=== PATIENT | female | born 1960 | race Hispanic/Latino ===

== ENCOUNTER 2019-08-06 06:09 | Day surgery (SDC) | payer BC ==
--- NOTE | 2019-08-06 07:22 | Anesthesia Consultation ---
Anesthesia Consult and Med Hx Date of service: 08/06/19 - Airway Anesthetic Teeth Evaluation: Good ROM Head & Neck: Adequate Mental/Hyoid Distance: Adequate Mallampati Class: Class II Intubation Access Assessment: Probably Good - Pre-Operative Health Status ASA Pre-Surgery Classification: ASA2 Proposed Anesthetic Plan: MAC - Pulmonary Hx Smoking: Yes (40 years current smoker ) - Central Nervous System Hx Psychiatric Problems: Yes (depression/anxiety) - Gastrointestinal Hx Gastroesophageal Reflux Disease: Yes
--- NOTE | 2019-08-06 07:23 | Anesthesia Day of Surgery ---
Anesthesia Day of Surgery - Day of Surgery Patient Examined: Yes Patient H&P Reviewed: Yes Patient is NPO: Yes
[2019-08-06] MEDS ORDERED: NACL 0.9% 1000 ML 1,000 ML IV SCH (08:00)
[2019-08-06] MEDS ORDERED: WATER FOR IRRIG STERILE IR ONE (08:26)
[2019-08-06] MEDS ORDERED: WATER FOR IRRIG STERILE ONE (08:27)
[2019-08-06] MEDS ORDERED: XYLOCAINE 2% INFILTRATI ONE (08:29)
[2019-08-06] MEDS ORDERED: DIPRIVAN 10 MG/ML IV ONE ×3 (08:29→08:53)
--- NOTE | 2019-08-06 08:34 | History and Physical Report ---
HISTORY OF PRESENT ILLNESS: This is a 58-year-old white female who is in otherwise good health, but has a strong family history of cancer including colon cancer. Last colonoscopy was done several years ago. The patient has a prior history of colon polyps and diverticular disease and lately also has been having GERD symptoms and has been advised to have an EGD as well as a colonoscopy done. SOCIAL HISTORY: She admits to smoking on occasion drinks alcohol. ALLERGIES: Has no known allergies. FAMILY HISTORY: Significant for colon cancer. She gives no prior history of any coronary artery disease or CVA. Has had a surgery for a cyst in the back, but no abdominal surgery. PHYSICAL EXAMINATION: VITAL SIGNS: Otherwise are stable. HEENT: Shows no JVD. LUNGS: Clear to auscultation with some reduced breath sounds. CARDIOVASCULAR: Normal. ABDOMEN: Soft. Bowel sounds present. She has some epigastric tenderness. EXTREMITIES: No pedal edema. NEUROLOGIC: She is alert and oriented. ASSESSMENT: Gastroesophageal reflux disease symptoms, possible esophagitis, history of colon polyps, family history of colon cancer and diverticular disease. PLAN: To do an EGD and a colonoscopy at [facility] on 08/06/2019. JOB# [id number] NEHA/JENNIFER
--- NOTE | 2019-08-06 09:12 | Operative Report ---
PROCEDURE: Esophagogastroduodenoscopy with biopsy. INDICATIONS: This is a 58-year-old white female in otherwise good health, who does have a history of smoking and a strong family history of cancer. Lately, she has been having GERD symptoms. EGD was done to assess for the problem. DESCRIPTION OF PROCEDURE: The procedure was done after getting informed consent with MAC anesthesia. Instrument was passed through the hypopharynx into the esophagus, which showed moderate erosive esophagitis. Photo documentation and biopsy was obtained. The stomach showed moderate hiatal hernia on the retroverted view and antral gastritis. Biopsy was done from the gastric antrum, gastric body and angular incisura to rule out for H. pylori and atrophic gastritis. The pylorus was patent. The duodenum in the first and the second portion appeared normal. There was minimal bleeding from the biopsy sites and no complications associated with the procedure. ASSESSMENT: Gastroesophageal reflux disease symptoms, moderate erosive esophagitis, moderate hiatal hernia, gastritis. PLAN: To treat the patient with PPI, have the patient avoid aspirin and aspirin-related products for the next few days and to do a colonoscopy for further assessment as part of colon polyp screening. The patient will be treated with PPI and asked to follow up in the office in 1-2 weeks' time. Colonoscopy will be done as part of colon polyp screening. The patient will be asked to avoid aspirin and aspirin-related products for the next few days and will be treated with PPI. The procedure was done in the GI lab with assistance of the GI lab team, which included SAGRARIO, Christie De Los Santos and Federica Ramires as well as with the assistance of Anesthesia. JOB# [id number] NEHA/JENNIFER SONG
--- NOTE | 2019-08-06 09:16 | Procedure Note ---
Date of procedure: 08/06/19 Pre-op diagnosis: GERD/ Colon Polyp Screening Post-op diagnosis: other (Moderate,Hiatal Hernia/Mild to Moderate,Erosive Esophagitis/Gastritis/Multiple Colon Polyps (Descending Colon and Zrbns-Ftjdeam-sszcbds by snare polypectomy and Cold Biopsy)/ Mild to Moderate Internal Hemorrhoid) Procedure: EGD with Biopsy and Colonoscopy and Snare Polypectomy and Cold Biopsy [place] [facility] [place]: NILESH SANCHEZ Estimated blood loss: minimal Pathology: list Specimen disposition: to lab Condition: stable Disposition: same day (Treat with PPI and advice about lifestyle changes (as the patient has a Hiatal Hernia); avoid aspirin and NSAID for 5 days and follow up in 1 to 2 weeks ([phone]).)
--- NOTE | 2019-08-06 09:17 | Operative Report ---
PROCEDURE: Colonoscopy with biopsy and snare polypectomy. INDICATIONS: This is a 58-year-old white female with a strong family history of colon cancer, prior history of colon polyp, who had an EGD done because of GERD symptoms. EGD showed presence of moderate erosive esophagitis as well as a moderate hiatal hernia and gastritis. Colonoscopy was done to make sure there was not any recurrence of any polyps. DESCRIPTION OF PROCEDURE: The procedure was done after getting informed consent with MAC anesthesia. Initial rectal exam was unremarkable. Instrument was passed through the rectum onto the cecum, which was identified with ileocecal valve and the appendiceal orifice. Visualization was fair to good. The scope was retroflexed in the cecum. No additional pathology was noted and the straight view was withdrawn to the hepatic flexure and reintroduced again without any additional findings. The cecum, ascending colon, transverse colon showed normal mucosa, in the proximal descending colon, there was 11-12 mm sessile polyp that was removed by snare excision and retrieved. The remaining part of the descending colon and the sigmoid, most of the sigmoid showed normal mucosa, in the rectosigmoid area, there were several small polyps that ranged in size from 6-9 mm in diameter, some of which were removed by cold biopsy and some by cold snare polypectomy and there was minimal bleeding from the polypectomy site and the rectum showed mild to moderate internal hemorrhoids on the retroverted view. Again, there was minimal bleeding from the polypectomy sites. No complications associated with the procedure. Procedure was done with the assistance of the GI lab team, which included Christie ZABALA as well as Keyla desouza and with the assistance of Anesthesia. The patient will be asked to avoid aspirin and aspirin-related products for the next few days. Follow up in the office in 1-2 weeks' time and will be asked to take PPI and advised about lifestyle changes because of the findings of moderate hiatal hernia. JOB# [id number] NEHA/JENNIFER
[2019-08-06 09:35] VITALS: BP 129/80
== END 2019-08-06 06:10 | disposition home or self-care (01) ==
LOC: GIO 06:09
DX: Z12.11 Encounter for screening for malignant neoplasm of colon (principal); D12.4 Benign neoplasm of descending colon; K62.1 Rectal polyp; K29.40 Chronic atrophic gastritis without bleeding; K21.0 Gastro-esophageal reflux disease with esophagitis; K63.5 Polyp of colon; K64.8 Other hemorrhoids; K44.9 Diaphragmatic hernia without obstruction or gangrene; K29.70 Gastritis, unspecified, without bleeding; F17.210 Nicotine dependence, cigarettes, uncomplicated; Z86.010 Personal history of colon polyps; Z80.0 Family history of malignant neoplasm of digestive organs; Z79.899 Other long term (current) drug therapy; Z98.890 Other specified postprocedural states
CPT/HCPCS: 43239; 45380; 45385; 88305; 88312; 88342; J2704; J7030

== ENCOUNTER 2019-12-25 10:04 | Outpatient (CLI) | payer BC ==
--- NOTE | 2019-12-25 11:18 | Mammography Report ---
LEFT DIGITAL DIAGNOSTIC MAMMOGRAM WITH CAD -- 12/25/2019 LEFT LIMITED BREAST ULTRASOUND INDICATION: Follow-up evaluation of finding noted previously in the left breast on outside imaging. TECHNIQUE: Digital left mammographic imaging was performed. Limited ultrasound was performed. This e xamination was interpreted with the benefit of Computer-Aided Detection (CAD) analysis. COMPARISON: 07/06/2019, 06/22/2019, 06/07/2017, 05/07/2016, 03/13/2015 FINDINGS: Breast Density: There are scattered areas of fibroglandular density. A partially circumscribed 5 mm low-density oval, possibly reniform, shaped lesion in the left medial breast persists. This appears to be inferiorly on the ML and rolled views. It is not significantly ch anged from most recent prior mammograms. It may have been present on the 2015 exam, however its appea roselyn is slightly more prominent, possibly reflecting differences in technique and positioning. No ne w suspicious findings are identified mammographically. Ultrasound Findings: Targeted ultrasound evaluation was performed of the area of interest. A target ed ultrasound focused in the left breast from the 7:00 to the 9:00 position, 7 to 8 cm from the nippl e, was performed to evaluate the mammographic finding seen in this region. No suspicious solid or cys tic lesions identified. Of note, a prior outside ultrasound performed 07/06/2019 failed to show a sonog raphic correlate. IMPRESSION: No significant change in probably benign left lower inner breast lesion. This may represent a small i ntramammary lymph node, however no sonographic correlate is identified. Follow-up diagnostic mammogra m is recommended to assess stability in 6 months when the patient will be due for her annual bilatera l mammogram. BI-RADS Category 3: Probably Benign. A "normal" or negative report should not discourage follow up or biopsy of a clinically significant f inding. A written summary of these findings will be mailed to the patient. The patient will be entered into a mammography reporting system which will generate a reminder letter for the patient's next appointmen t at the appropriate interval. According to the [employer], yearly mammograms are recommended starting at age 40 and continuing as long as a woman is in good health. Breast MRI is recommended for women with an rod roximately 20-25% or greater lifetime risk of breast cancer, including women with a strong family his tory of breast or ovarian cancer and women who have been treated for Hodgkin's disease. Signer Name: Florian Wilson MD Signed: 12/25/2019 11:13 AM Workstation Name: [id number]
== END 2019-12-25 10:05 | disposition home or self-care (01) ==
LOC: SPVWC 10:04
PROVIDERS: ATTEND Surgery
DX: R92.8 Other abnormal and inconclusive findings on diagnostic imaging of breast (principal)

== ENCOUNTER 2021-08-05 10:30 | Outpatient (CLI) | payer BC ==
--- NOTE | 2021-08-06 08:43 | Mammography Report ---
DIGITAL SCREENING MAMMOGRAM WITH CAD, 08/05/2021 CLINICAL INFORMATION / INDICATION: Routine screening mammography. SCREENING MAMMO Z12.31 TECHNIQUE: Digital bilateral 2D mammography was obtained in the craniocaudal and mediolateral obliqu e projections. This examination was interpreted with the benefit of Computer-Aided Detection analysis . COMPARISON: 06/22/2019, 06/07/2017 FINDINGS: Breast Density: There are scattered areas of fibroglandular density. No dominant mass, suspicious calcifications, or architectural distortion in either breast. IMPRESSION: No mammographic evidence of malignancy. Follow up recommendation: Routine yearly BI-RADS Category 1: Negative. A "normal" or negative report should not discourage follow up or biopsy of a clinically significant f inding. A written summary of these findings will be mailed to the patient. The patient will be entered into a mammography reporting system which will generate a reminder letter for the patient's next appointmen t at the appropriate interval. The [employer] recommends yearly mammograms starting at age 40 and continuing as l manisha as a woman is in good health. Breast MRI is recommended for women with an approximate 20-25% or greater lifetime risk of breast cancer, including women with a strong family history of breast or ova lizandro cancer or who have been treated for Hodgkin's disease. Signer Name: Jean Abebe DO Signed: 08/06/2021 8:39 AM Workstation Name: [id number]
== END 2021-08-05 10:31 | disposition home or self-care (01) ==
LOC: SPVWC 10:30
PROVIDERS: ATTEND Surgery
DX: Z12.31 Encounter for screening mammogram for malignant neoplasm of breast (principal)
CPT/HCPCS: 77067

== ENCOUNTER 2021-10-02 07:13 | Day surgery (SDC) | payer BC ==
[~2021-10-02 07:13] MED LIST: SODIUM CHLORIDE 0.9% 1000 ML 1,000 ML IV SCH
--- NOTE | 2021-10-02 09:10 | Anesthesia Day of Surgery ---
Anesthesia Day of Surgery - Day of Surgery Patient Examined: Yes Patient H&P Reviewed: Yes Patient is NPO: Yes
--- NOTE | 2021-10-02 09:11 | Anesthesia Consultation ---
Anesthesia Consult and Med Hx Date of service: 10/02/21 - Airway Anesthetic Teeth Evaluation: Good ROM Head & Neck: Adequate Mental/Hyoid Distance: Adequate Mallampati Class: Class II Intubation Access Assessment: Good - Pre-Operative Health Status ASA Pre-Surgery Classification: ASA2 Proposed Anesthetic Plan: MAC - Pulmonary Hx Smoking: Yes (40 years current smoker ) - Central Nervous System Hx Psychiatric Problems: Yes (depression/anxiety) - Gastrointestinal Hx Gastroesophageal Reflux Disease: Yes - Other Systems Hx Obesity: Yes
[2021-10-02] MEDS ORDERED: propofoL 200 MG/20 ML VIAL IV ONE ×3 (09:20→09:50)
[2021-10-02] MEDS ORDERED: LIDOCAINE MPF (2%) 20 MG/1 ML VIAL 5 ML ONE (09:20)
[2021-10-02] MEDS ORDERED: GLYCOPYRROLATE 0.4 MG/2 ML INJ ONE (09:58)
--- NOTE | 2021-10-02 10:22 | Operative Report ---
DATE OF SURGERY: 10/02/2021 PROCEDURE PERFORMED: EGD with biopsy. INDICATIONS: This is a 61-year-old white female with a history of smoking, has been having GERD symptoms. EGD was done to assess for the problem. DESCRIPTION OF PROCEDURE: Procedure was done after getting informed consent with MAC anesthesia. The instrument was passed through the hypopharynx into the esophagus, which showed mild to moderate erosive esophagitis. Stomach showed gastritis, but no gastric ulcers in the straight or retroverted view. There was a small hiatal hernia noted. The pylorus was patent. The duodenum in the first and second portion appeared normal. Biopsy was done from the second part of the duodenum to rule out for celiac disease. Additional biopsy was also done from the gastric antrum, gastric body and angularis incisura to rule out for H. pylori and also biopsy was done from the distal and mid esophagus to assess for the severity of the erosive esophagitis and to rule out for any eosinophilic esophagitis. There was minimal bleeding associated with the procedure. There were no complications associated with the procedure. ASSESSMENT: Gastroesophageal reflux disease symptoms, mild to moderate erosive esophagitis, gastritis, rule out celiac disease. Small hiatal hernia. PLAN: To treat the patient with PPI and encourage the patient about lifestyle changes. Advised the patient to refrain from smoking, avoid aspirin and aspirin-related products for the next few days and follow up in the office in 1-2 weeks' time. A colonoscopy is also to be done as part of colon polyp screening. The patient has an underlying family history of colon cancer. The patient's procedure was done in the GI lab with assistance of the GI lab team, which included the GI nurse, the installation and repair technician and with the assistance of anesthesia. TID: [id number] RECEIPT: [id number] NEHA/SANDRA
--- NOTE | 2021-10-02 10:27 | Procedure Note ---
Date of procedure: 10/02/21 Pre-op diagnosis: GERD/ Colon Polyp Screening/ F/H/O Colon Cancer Post-op diagnosis: other (Mild to Moderate Erosive Esophagitis/ Small Hiatal Hernia/ Gastritis/ R/O Celiac Disease/Multiple, Small Recto-Sigmoid Polyps (possibly hyperplastic)/Few,Left colon diverticuli/Minor,Internal Hemorrhoid) Procedure: EGD with Biopsy/ Colonoscopy with Biopsy Anesthesia: NATTY Surgeon: NILESH SANCHEZ Estimated blood loss: minimal Pathology: list Specimen disposition: to lab Condition: stable
[2021-10-02 13:38] VITALS: BP 129/83
--- NOTE | 2021-10-02 14:28 | Post Anesthesia Evaluation ---
- Post Anesthesia Evaluation Patient Participated: Yes Airway Patent: Yes Stable Respiratory Function: Yes Nausea/Vomiting: No Temp > 96.8F: Yes Pain Manageable: Yes Adequeate Hydration: Yes Anesthesia Complications: No Block Receding Appropriately: Not Applicable Patient on Ventilator: No
--- NOTE | 2021-10-02 15:01 | Operative Report ---
DATE OF SURGERY: 10/02/2021 PROCEDURE: Colonoscopy. INDICATIONS: This is a 61-year-old white female who had an EGD done prior to the colonoscopy. EGD showed mild to moderate erosive esophagitis, gastritis and a small hiatal hernia. Colonoscopy was done to assess for colon polyps. The patient does have a family history of colon cancer. DESCRIPTION OF PROCEDURE: Procedure was done after getting informed consent with MAC anesthesia. Initial rectal examination was unremarkable. The instrument was passed through the rectum onto the cecum. Her sigmoid and descending colon area was a little tortuous. The cecum was identified with ileocecal valve and the appendiceal orifice. The cecum was also visualized on the retroverted view. No additional pathology was noted. The scope was withdrawn to the hepatic flexure and reintroduced and no additional pathology was seen. The cecum, ascending colon, transverse colon showed normal mucosa. There were a few minor diverticula in the left colon and multiple small possibly hyperplastic polyp noted in the rectosigmoid area that was removed by cold biopsy with minimal bleeding. The rectum also showed some minor internal hemorrhoid on the retroverted view. ASSESSMENT: Colon polyp screening, family history of cancer, multiple small rectosigmoid polyps, possibly hyperplastic, few left colon diverticula, minor internal hemorrhoids. PLAN: To have the patient to avoid aspirin and aspirin-related products for the next few days. Treat the patient with PPI because of the EGD findings of esophagitis and gastritis. Also, encouraged the patient about lifestyle changes since the patient has a small hiatal hernia, have the patient avoid aspirin and aspirin-related products for the next few days. Encouraged the patient to increase fiber supplements and follow up in the office in 1-2 weeks' time. Procedure was done in the GI lab with assistance of the GI lab team, which included the GI nurse, health records technology teacher and with assistance of anesthesia. TID: [id number] RECEIPT: [id number] NEHA/ANTHONY
== END 2021-10-02 10:57 | disposition home or self-care (01) ==
LOC: GIO 07:13
DX: Z12.11 Encounter for screening for malignant neoplasm of colon (principal); K64.8 Other hemorrhoids; K57.30 Diverticulosis of large intestine without perforation or abscess without bleeding; K21.00 Gastro-esophageal reflux disease with esophagitis, without bleeding; K44.9 Diaphragmatic hernia without obstruction or gangrene; D12.7 Benign neoplasm of rectosigmoid junction; K29.50 Unspecified chronic gastritis without bleeding; K31.89 Other diseases of stomach and duodenum; K63.89 Other specified diseases of intestine; E66.9 Obesity, unspecified; F41.9 Anxiety disorder, unspecified; F32.9 Major depressive disorder, single episode, unspecified; F17.210 Nicotine dependence, cigarettes, uncomplicated; Z79.899 Other long term (current) drug therapy; Z98.890 Other specified postprocedural states; Z68.30 Body mass index [BMI] 30.0-30.9, adult
CPT/HCPCS: 43239; 45380; 88305; 88342; J2704; J7030